=== PATIENT | male | born 1990 | race Caucasian/White ===

== ENCOUNTER 2020-06-16 05:59 | Day surgery (SDC) | payer OTHER, SELFPAY ==
[2020-06-10 07:54] VITALS: BMI 29.9
[2020-06-15 11:23] LABS: Absolute Lymphocyte Count 2.49 X10^3/uL (0.83-4.51); Absolute Neutrophil Count 9.1 X10^3/uL (2.0-7.7); Basophil# 0.05 X10^3/uL; Basophil% 0.4 % (0-1); Eosinophil# 0.22 X10^3/uL; Eosinophils% 1.7 % (0-5); Hematocrit 45.8 % (40-54); Hemoglobin 15.7 g/dL (13.0-16.5); Lymphocyte # 2.49 X10^3/ul (4.0); Lymphocyte % 19.4 % (19-41); Mean Corp Hgb Conc 34.3 g/dL (32-36); Mean Corpuscular Hgb 31.3 pg (27.0-32.0); Mean Corpuscular Volume 91.4 fL (80-94); Mean Platelet Vol. 9.9 fl (6.2-12.0); NRBC Flagged by Analyzer 0 % (0-5); Neutrophil # 9.13 X10^3/uL (2.7-7.7); Platelet Count 238 K/mm3 (150-450); RBC Distribution Width CV 11.9 % (11.6-14.6); RBC Distribution Width SD 40.2 fl (35.1-43.9); Red Blood Count 5.01 M/mm3 (4.6-6.2); White Blood Count 12.9 K/mm3 (4.4-11.0)
[2020-06-15 12:03] LABS: Anion Gap 6 (5-15); BUN 13 mg/dL (7-18); BUN/Creat Ratio 14.2 RATIO (10-20); Calcium,Total 9.3 mg/dL (8.5-10.1); Chloride 106 mmol/L (98-107); Creatinine, Serum 0.92 mg/dL (0.70-1.30); EST Glomerular Filtration Rate 103 mL/min (>60); Est Glom Filt Rate - Afr Amer 125 mL/min (>60); Glucose 84 mg/dL (74-106); Potassium 3.9 mmol/L (3.5-5.1); Sodium Level 138 mmol/L (136-145)
--- NOTE | 2020-06-16 | COLBX_PTH ---
PATIENT: NICOL ALEGRIA LOC: EN U#:[id number] AGE/SX: 30/M ROOM: RE06/16/[address]: Dr. Rufus Reed MD : 1990 BED: DIS: 06/16/2020 SPEC #: [id number] RECD: 06/16/20 07:57 STATUS: MARY ELLEN EDINSON #: [id number] ULISES: 06/16/20 00:[address]: Rufus Reed DEPT: SURGICAL PATHOLOGY RECD BY: David Lima ENTERED: 06/16/20 11:16 SP TYPE: COLON BX OTHR DR: No Primary Care Phys Tissues: A - COLON BIOPSY B - Anal region Procedures: Surgery Specimen Level IV HEADER OPERATION: Colonoscopy (MAC); anal fistula PRE-OP DIAGNOSIS: Anal fistula; perianal abscess TISSUE SUBMITTED: A - Random colonic biopsies, B - Perianal abscess MICROSCOPIC DIAGNOSIS A. Colon, random biopsy: No pathologic change. B. Perianal abscess, biopsy: Skin and soft tissue with squamous fistula, inflamed. No evidence of malignancy. AM:aiden 06/17/2020 MICROSCOPIC DESCRIPTION Slides are reviewed. GROSS DESCRIPTION A - Received in fixative is one container labeled with the patient's name and designated random colon biopsy. The specimen consists of multiple irregular fragments of light garcia soft tissue that in aggregate measure 2.2 x 1 x 0.1 cm. The specimen is totally submitted in one cassette. B - Received in fixative is one container labeled with the patient's name and designated perianal abscess tissue. The specimen consists of two irregular fragments of red-garcia soft tissue that in aggregate measure 2 x 1 x 0.8 cm. The largest fragment contains grossly unremarkable skin measuring 1.5 cm. The largest fragment is bisected and submitted along with the smaller fragment in one cassette. / AM:aiden 06/16/20 TC:3 CPT: 36493 x2
--- NOTE | 2020-06-16 06:32 | HP.PCM_ITS ---
Problem List (1) Fistula, anal Status: Acute History and Physical Date of Admission: 06/16/20 Intake Visit Reasons: POSSIBLE PERIRECTAL Chief Complaint: possible john-rectal Emission Technician Required: No Is patient in pain?: Yes Allergies codeine Allergy (Mild, Verified 06/10/20 07:56) itching Medications calcium carbonate 300 mg (750 mg) chewable tablet 300 mg PO QHS tab 06/10/20 [History Confirmed 06/10/20] multivitamin 1 tab PO DAILY 06/10/20 [History Confirmed 06/10/20] [facility] Medical History (Updated 06/10/20 @ 08:[address] Rufus Reed MD) Fistula, anal (Acute) Abscess, gluteal, right (Acute) Cardiac murmur (Acute) Diarrhea (Acute) Hemorrhoids (Acute) Pilonidal cyst (Acute) Surgical History (Updated 06/10/20 @ 07:54 by Gwen Felipe) History of excision of pilonidal cyst (Acute) History of wisdom tooth extraction (Acute) Family History (Updated 06/10/20 @ 07:54 by Gwen Felipe) Father Renal calculi Social History (Updated 06/10/20 @ 08:[address] Rufus Reed MD) Smoking Status: Current every day smoker Tobacco: How many years used: 12 HPI HPI HPI: NICOL ALEGRIA, is a 30 M who presents to the office today for MaricruzRajAlvarez Dsouza. The patient states that the area is never healed. He has intermittent bleeding from the external site pain pressure. He has intermittent rectal bleeding. He has never had a colonoscopy. He denies family history of colon cancer or colon polyps. No history of Crohn's disease or ulcerative colitis. He works construction. He has no fever chills sweats. He is not aware of any exposure to COVID-19. HPI HPI HPI: NICOL ALEGRIA, is a 30 M who presents to the office today for ROS General General: Yes fatigue; no weight change, appetite, colon cancer, breast cancer or weakness HEENT HEENT: No difficulty swallowing, eye injury, eye surgery, swollen glands or hoarseness Endo Endocrine: No thyroid disease, diabetes mellitus, thyroid cancer, Hair loss, heat intolerance or cold intolerance Cardio Cardiovascular: Yes murmur; no pacemaker, heart disease, atrial fibrillation, high blood pressure, heart attack, heart stent, palpitations, shortness of breat with exertion or chest pain Psych Psychiatric: No depression, anxiety or hearing voices Resp Respiratory: No shortness of breath, No sleep apnea, No cough, No COPD, No asthma, No emphysema, No wheezing Gastro Gastrointestinal: Yes abdominal pain, Yes nausea or vomiting, Yes diarrhea, No constipation, Yes blood in stool, Yes acid reflux, Yes hemorrhoids, No ulcers, No gallbladder problem, No black,tarry stools Luca Hematologic: No blood thinners, No blood disorders, Yes bleeding, No anemia, No blood clots Neuro Neurologic: No weakness Exam Const General: cooperative Nutritional Appearance: average body habitus Orientation: alert, awake HENMT Head: normal to inspection Eyes General: appearance normal, both eyes and all related structures Resp Effort & Inspection: normal respiratory effort Auscultation: clear to auscultation bilaterally Cardio Rate: regular rate Rhythm: regular rhythm Heart Sounds: murmur GI Inspection: normal to inspection Other: Right anterior lateral anus external fistula slight with slight redness. Musc Cervical Spine: normal cervical lordosis Skin General: no rashes or lesions noted Neuro General: alert, awake Extrem General: no calf tenderness Assessment & Plan Problems 1. 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 Right anterior lateral. Rectal bleeding. Intermittent diarrhea. I recommended the patient a colonoscopy with possible biopsy possible random biopsies looking for potential source of diarrhea. Very careful colorectal inspection performed. I then recommend an attempt at a fistulotomy likely with a seton suture placement. In detail I have described to the patient technique, benefit, risk of alternatives. I can see the external fistula. The question will be whether the internal site can be visualized. He has had an opportunity to ask and have questions answered. We will schedule and proceed at his discretion. I appreciate the opportunity of assisting with his surgical care. Rufus Reed M.D., F.A.C.S. 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 There are no clinical changes since date of exam. Procedure Criteria Procedure Type: Elective COVID Risk Discussion: The surgeon/proceduralist and patient have discussed in detail the risk of exposure to and/or potential harm posed by the COVID-19 virus with having a surgery/procedure at this time versus the risk of delaying the surgery/procedure. It is not possible to know either the risk of delaying the surgery or procedure or chance of getting an infection with perfect accuracy, but a joint decision was made between the patient and the surgeon/proceduralist to proceed at this time with the scheduled surgery/procedure as indicated on the consent form.
--- NOTE | 2020-06-16 06:33 | DCINST_ITS ---
Discharge Diet: Light diet - advance as tolerated Discharge Activity: Return to Normal Activity, May Not Drive - while you are taking narcotic pain medications. Do not drive, work with heavy equipment or sign legal documents for 24 hours after your surgery. Additional Activity Instructions:: I recommend taking a daily fiber supplement such as Metamucil, Citrucel, FiberCon, Benefiber, or generic I would do this on a daily basis. I recommend taking mineral oil 30 cc or 1 ounce mixed in food or juice daily for the next 3 to 5 days. You may utilize a sitz bath as sitting in warm soapy water at approximately 20 minutes a time for comfort and cleansing. Please maintain good hygiene after moving your bowels and this may be facilitated with tub baths or showers Allergies/Adverse Reactions: Allergies codeine Allergy (Mild, Verified 06/10/20 07:56) itching Medications to take at Discharge calcium carbonate 300 mg (750 mg) chewable tablet 300 mg PO QHS tab 06/10/20 multivitamin 1 tab PO DAILY 06/10/20 Primary Care Physician: Care Physician,No Primary [Primary Care Provider] - Test Results: Test results from this visit will be discussed in further detail at your follow- up appointment, if applicable. Please Follow Up With: Rufus Reed MD - [phone] When: Call for appt. Approx. 3 week follow up
[2020-06-16] MEDS: Lactated Ringers 1,000 ML 100 ML IV ×2 (06:53→08:55)
[2020-06-16 06:56] VITALS: BP 118/86; PULSE 89; RESP 18; TEMP 36.8; O2SAT 99; BMI 28.7
[2020-06-16] MEDS: Cefotetan 2 GM in 0.9% NS 100 ML IV (07:22)
[2020-06-16] MEDS: Bupivacaine Mpf 0.5% 30 ML VIAL (08:00)
--- NOTE | 2020-06-16 08:19 | OP.CCLET_ITS ---
06/16/2020 No Primary Care Physician Re : Colonoscopy procedure for Wally Boyd Dear Care Physician This procedure was performed on Tuesday, June 16, 2020. My impressions and recommendations are as follows: Impressions : - Hemorrhoids found on perianal exam. - The entire examined colon is normal. Biopsied. Recommendations : - Discharge patient to home. - Resume previous diet. - Continue present medications. - Return to my office in 3 weeks. - No repeat colonoscopy due to no evidence of mucosal or other abnormalities on today's exam. My findings are described in the full procedure note, which is enclosed. If I can be of further assistance, please feel free to contact me at Doctor phone number(s): Work: . Sincerely, Rufus Reed MD 06/16/2020 8:19:24 AM This report has been signed electronically.
--- NOTE | 2020-06-16 08:19 | OP.COLON_ITS ---
Patient Name: Wally Boyd Procedure Date: 06/16/2020 7:16 AM Date of : 1990 Age: 30 Procedure: Colonoscopy Indications: Clinically significant diarrhea of unexplained origin Providers: Rufus Reed MD Referring MD: Rufus eRed MD Medicines: General Anesthesia Patient Profile: Last Colonoscopy: none. The patient's first colonoscopy is today. Complications: No immediate complications. Procedure: Pre-Anesthesia Assessment: - Prior to the procedure, a History and Physical was performed, and patient medications and allergies were reviewed. The patient's tolerance of previous anesthesia was also reviewed. The risks and benefits of the procedure and the sedation options and risks were discussed with the patient. All questions were answered, and informed consent was obtained. Prior Anticoagulants: The patient has taken no previous anticoagulant or antiplatelet agents. ASA Grade Assessment: I - A normal, healthy patient. After reviewing the risks and benefits, the patient was deemed in satisfactory condition to undergo the procedure. After I obtained informed consent, the scope was passed under direct vision. Throughout the procedure, the patient's blood pressure, pulse, and oxygen saturations were monitored continuously. The colonoscope was introduced through the anus and advanced to the cecum, identified by appendiceal orifice and ileocecal valve. The colonoscopy was performed without difficulty. The patient tolerated the procedure well. The quality of the bowel preparation was good. The ileocecal valve and the appendiceal orifice were photographed. Scope In: 7:32:17 AM Scope Withdrawal Time 0 hours 6 minutes 46 seconds Scope Out: 7:42:02 AM Total Procedure Duration Time 0 hours 9 minutes 45 seconds Findings: Hemorrhoids were found on perianal exam. The colon (entire examined portion) appeared normal. Biopsies for histology were taken with a cold forceps from the entire colon for evaluation of microscopic colitis. Impression: - Hemorrhoids found on perianal exam. - The entire examined colon is normal. Biopsied. Recommendation: - Discharge patient to home. - Resume previous diet. - Continue present medications. - Return to my office in 3 weeks. - No repeat colonoscopy due to no evidence of mucosal or other abnormalities on today's exam. Procedure Code(s): --- Professional --- 85595, Colonoscopy, flexible; with biopsy, single or multiple Diagnosis Code(s): --- Professional --- K64.9, Unspecified hemorrhoids R19.7, Diarrhea, unspecified CPT copyright 2017 [employer]. All rights reserved. The codes documented in this report are preliminary and upon bread oven operator review may be revised to meet current compliance requirements. Rufus Reed MD 06/16/2020 8:19:24 AM This report has been signed electronically. Number of Addenda: 0 Note Initiated On: 06/16/2020 7:16 AM
--- NOTE | 2020-06-16 08:20 | PCM.OPRPT ---
Problem List (1) Fistula, anal Status: Acute Report of Operation Date of Procedure: 06/16/20 Pre-Operative Diagnosis: Diarrhea, suspected fistula in ano Post-Operative Diagnosis: Normalcolon, Right anterior lateral external scar tissue inflammatory post abscess tissue Surgery/Procedure Performed:: Colonoscopy dictated in the provation system. Examination under anesthesia. Cicatrix chronic abscess right anterior perianal tissue. Fistulous track not identified. Excision external hemorrhoidal/chronic abscess cavity tissue Description of Surgical Findings:: The patient underwent a colonoscopy in the left lateral decubitus position. Subsequently he was placed prone on the table with careful shoulder rolls. The patient was placed in a prone flexed jackknife prone position. Cefotetan 2 g were given intravenously. The perianal area was clipper and Betadine prepped. Right anterior there was evidence of scar tissue related to a previous abscess. There was a small punctate area that appeared to be some chronic inflamed tissue and I thought represented a fistulous tract. Attempts were made to probe this area but it appeared to be sealed off. Bimanual examination with rectal examination rectal speculum and inspection failed to reveal any internal fistulous opening. There was a slight amount of indurated tissue around that external site. I elected to remove this area. I tried injecting peroxide. I placed 2 sutures elevated and then excised the tissue. I inspected the subcutaneous areas and again could not see any residual tissue that looked like a fistula temp track. Palpation failed to reveal any residual indurated tissue. There was no active abscess. I elected after excising this tissue to leave the wound open to allow it to heal from secondary intent. I am hoping that this will resolve his chronic issue. Vaseline gauze 4 x 4's ABDs applied. The periexcision area was anesthetized with 0.5% Marcaine 30 cc was used. Specimens excised right anterolateral perianal tissue with some external hemorrhoidal tissue. Drains none. Blood loss minimal. Rufus Reed M.D., F.A.C.S.
[2020-06-16] MEDS: Lubricating Jelly 60 GM Tube 30 GM TOPICAL (08:22)
[2020-06-16 08:32] VITALS: BP 118/86; BP 136/91; PULSE 97; RESP 18; TEMP 36.4; O2SAT 99
[2020-06-16 08:45] VITALS: BP 118/86; BP 122/79; PULSE 79; RESP 18; O2SAT 96
[2020-06-16 09:00] VITALS: BP 118/86; BP 127/73; PULSE 69; RESP 18; O2SAT 97
[2020-06-16 09:13] VITALS: BP 118/86; BP 122/73; PULSE 70; RESP 18; TEMP 36.4; O2SAT 95
[2020-06-16 10:47] VITALS: BP 118/86
== END 2020-06-16 10:48 | disposition home or self-care (01) ==
LOC: EN 05:59 → AC 05:59
PROVIDERS: Referring Provider Surgery; Visit Provider Surgery
PROC: (CPT 45380; principal; 2020-06-16 07:15)
PROC: 0DJD8ZZ Inspection of Lower Intestinal Tract, Via Natural or Artificial Opening Endoscopic (ICD-10-PCS; CPT 45378; principal; 2020-06-16 07:25)
DX: K61.0 Anal abscess (principal); K62.89 Other specified diseases of anus and rectum; K64.4 Residual hemorrhoidal skin tags; R19.7 Diarrhea, unspecified; F17.200 Nicotine dependence, unspecified, uncomplicated; Z20.822 Contact with and (suspected) exposure to COVID-19
CPT/HCPCS: 00902; 45380; 46270; 36415; 80048; 85025; 87426; 88305; C9803; J7120; J2405

== ENCOUNTER → 2020-07-14 16:26 | Outpatient (CLI) | payer OTHER, SELFPAY ==
[2020-06-16 06:56] VITALS: BMI 28.7
--- NOTE | 2020-07-14 16:31 | CT_ITS ---
STUDY: CT PELVIS WITH CONTRAST REASON FOR EXAM: Male, 30 years old. rectal pain RADIATION DOSAGE (If Supplied By Facility): CTDIvol = ( 17.27 ) mGy, DLP = ( 472.58 ) mGycm TECHNIQUE: Transaxial imaging of the pelvis was performed without oral contrast. Oral and amp; IV READII-CAT and amp; 100ML ISOVUE 300 was administered intravenously. Individualized dose optimization techniques were used for this CT. COMPARISON: None. FINDINGS: Normal urinary bladder. Normal visualized small intestine. Normal visualized colon. There is no pelvic fluid. There is no pelvic lymphadenopathy or mass lesion. Normal visualized pelvic arteries. Normal abdominal wall. Normal osseous structures. CT/Pelvis WITH IV Contrast IMPRESSION: Normal enhanced CT of the pelvis. Electronically Signed: Dalton Villalobos DO at 3:40 EST Tel , Service support ,
== END ==
PROVIDERS: Referring Provider Surgery; Visit Provider Surgery
DX: K62.89 Other specified diseases of anus and rectum (principal); K62.5 Hemorrhage of anus and rectum
CPT/HCPCS: 72193; Q9967